=== PATIENT | female | born 1965 | race Caucasian/White ===

== ENCOUNTER → 2022-10-30 | Day surgery (SDC) | payer BC, OTHER ==
[~2022-10-30] MED LIST: Dextrose 5%-0.45% NaCl 1,000 ML IV SCH; Midazolam 1 MG/ML 2 ML SDV IV ONE; Midazolam 1 MG/ML 2 ML SDV ONE; Sodium Chloride 0.9% 10 ML Syringe FLUSH PRN; Sodium Chloride 0.9% 10 ML Syringe FLUSH SCH; fentaNYL 100 MCG/2 ML SDV IV ONE; fentaNYL 100 MCG/2 ML SDV ONE
[2022-10-30 08:50] VITALS: BP 107/41; PULSE 57
== END | disposition home or self-care (01) ==
LOC: DL.ENDO 05:59
PROVIDERS: ATTEND Internal Medicine Gastroenterology
DX: K29.50 Unspecified chronic gastritis without bleeding (principal); K26.9 Duodenal ulcer, unspecified as acute or chronic, without hemorrhage or perforation; F41.1 Generalized anxiety disorder; F32.A Depression, unspecified; E78.5 Hyperlipidemia, unspecified; C91.10 Chronic lymphocytic leukemia of B-cell type not having achieved remission; L57.0 Actinic keratosis; Z98.890 Other specified postprocedural states; Z79.899 Other long term (current) drug therapy
CPT/HCPCS: 87077; J2250; J3010; J7042

== ENCOUNTER 2022-10-31 06:55 | Day surgery (SDC) | payer BC, OTHER ==
[~2022-10-31 06:55] MED LIST changes: -Midazolam 1 MG/ML 2 ML SDV IV ONE; -fentaNYL 100 MCG/2 ML SDV IV ONE
[2022-10-31] MEDS ORDERED: Midazolam 1 MG/ML 2 ML SDV IV ONE ×7 (06:56→08:31)
[2022-10-31] MEDS ORDERED: fentaNYL 100 MCG/2 ML SDV IV ONE ×3 (06:56→08:20)
[2022-10-31 14:17] VITALS: BP 112/54; PULSE 51
== END 2022-10-31 10:30 | disposition home or self-care (01) ==
LOC: DL.SDS 06:55
PROVIDERS: ATTEND Internal Medicine Gastroenterology
DX: K63.5 Polyp of colon (principal); K64.8 Other hemorrhoids; F41.1 Generalized anxiety disorder; F32.A Depression, unspecified; E11.9 Type 2 diabetes mellitus without complications; E78.5 Hyperlipidemia, unspecified; C91.10 Chronic lymphocytic leukemia of B-cell type not having achieved remission; E66.09 Other obesity due to excess calories; L57.0 Actinic keratosis; Z68.27 Body mass index [BMI] 27.0-27.9, adult; Z98.890 Other specified postprocedural states; Z90.710 Acquired absence of both cervix and uterus
CPT/HCPCS: J2250; J3010; J7042